=== PATIENT | female | born 1995 | race African-American/Black ===

== ENCOUNTER 2019-02-26 20:09 | Observation (INO) ==
[2019-02-26 21:45] LABS: Basophils % 0.2 % (0.0-0.8); Eosinophils % 0.1 % (0.00-10.9); Hematocrit 34.8 VOL% (35.7-47.0); Hemoglobin 10.9 GM/DL (12.0-16.0); Immature Granulocytes % 0.5 %; Immature Granulocytes Absolute 0.06 #; Lymphocytes # 0.9 10*3/uL (1.4-4.0); Lymphocytes % 7.2 % (21.3-54.2); Mean Corpuscular HGB Conc 31.3 GM/DL (32-36); Mean Corpuscular Volume 86.1 FL (87-102); Mean Platelet Volume 9.2 FL (9.6-12.0); Monocytes % 4.5 % (1.7-12.7); Neutrophils % 87.5 % (38.7-73.9); Platelet Count 261 T/CUMM (130-400); Red Blood Count 4.04 MC/CUMM (3.8-5.5); Red Cell Distribution Width 12.9 % (9.3-17.3); White Blood Count 12.6 T/CUMM (4-12)
[2019-02-26] MEDS ORDERED: MAGNESIUM HYDROXIDE SUSP 30 ML UDCUP PO PRN (21:55)
[2019-02-26] MEDS ORDERED: BISACODYL 10 MG SUPP RECTAL PRN (21:55)
[2019-02-26] MEDS ORDERED: ACETAMINOPHEN 325 MG TABLET PO PRN (21:55)
[2019-02-26] MEDS ORDERED: ONDANSETRON 4 MG/2 ML VIAL IV PRN ×2 (21:55→23:56)
[2019-02-26] MEDS: LACTATED RINGERS 1,000 ML IV SCH (23:14)
[2019-02-26] MEDS ORDERED: miSOPROStol 200 MCG TABLET VAG ONE (23:55)
[2019-02-26] MEDS ORDERED: MEPERIDINE 50 MG/1 ML VIAL IV PRN (23:55)
[2019-02-27] MEDS ORDERED: MEPERIDINE 25 MG/1 ML VIAL ONE (00:06)
[2019-02-27] MEDS ORDERED: MEPERIDINE 50 MG/1 ML VIAL IV PRN ×3 (00:32→02:18)
[2019-02-27] MEDS: CIPROFLOXACIN INJ 400 MG in PREMIX 1 EACH IV SCH ×2 (00:38→13:45)
[2019-02-27] MEDS ORDERED: MEPERIDINE 25 MG/1 ML VIAL IV PRN ×3 (01:14→02:18)
[2019-02-27] MEDS: LACTATED RINGERS 1,000 ML IV SCH (08:37)
[2019-02-27] MEDS ORDERED: DOCUSATE SODIUM 100 MG CAPSULE PO SCH (09:00)
[2019-02-27] MEDS ORDERED: DIAZEPAM 5 MG TABLET PO ONE (10:05)
[2019-02-27] MEDS ORDERED: FAMOTIDINE 20 MG TABLET PO ONE (10:06)
[2019-02-27] MEDS ORDERED: FAMOTIDINE 20 MG/2 ML VIAL IV ONE (11:38)
[2019-02-27] MEDS ORDERED: PROPOFOL 200 MG/20 ML VIAL IV ONE (13:09)
[2019-02-27] MEDS ORDERED: SEVOFLURANE 1 UNIT/15 MINUTE INH ONE (13:09)
[2019-02-27] MEDS ORDERED: fentaNYL 100 MCG/2 ML VIAL ONE (13:10)
[2019-02-27] MEDS ORDERED: PHENYLEPHRINE 1 MG/10 ML SYRINGE IV ONE (13:10)
[2019-02-27] MEDS ORDERED: MIDAZOLAM 2 MG/2 ML VIAL ONE (13:10)
[2019-02-27] MEDS ORDERED: KETOROLAC 30 MG/1 ML VIAL ONE (13:10)
[2019-02-27] MEDS ORDERED: ONDANSETRON 4 MG/2 ML VIAL ONE (13:10)
[2019-02-27 17:33] VITALS: BP 94/58
== END 2019-02-27 17:45 | disposition home or self-care (01) ==
LOC: N.ED 20:09 → N.EDINP 20:09 → N.OB 22:23
PROVIDERS: ADMIT Obstetrics & Gynecology; ATTEND Obstetrics & Gynecology

== ENCOUNTER 2020-05-20 05:46 | Inpatient (IN) ==
[2020-05-20] MEDS ORDERED: ONDANSETRON 4 MG/2 ML VIAL IV PRN (05:54)
[2020-05-20] MEDS ORDERED: LACTATED RINGERS 1,000 ML IV ONE ×2 (05:54→08:05)
[2020-05-20] MEDS ORDERED: LACTATED RINGERS 1,000 ML IV SCH (06:00)
[2020-05-20] MEDS ORDERED: OXYTOCIN/LR 20 UNIT/1,000 ML BAG IV SCH (06:00)
[2020-05-20 06:24] LABS: Basophils % 0.1 % (0.0-0.8); Eosinophils % 0.1 % (0.00-10.9); Hematocrit 28.4 VOL% (35.7-47.0); Hemoglobin 8.3 GM/DL (12.0-16.0); Immature Granulocytes % 1.7 %; Immature Granulocytes Absolute 0.13 #; Lymphocytes # 1.6 10*3/uL (1.4-4.0); Lymphocytes % 20.2 % (21.3-54.2); Mean Corpuscular HGB Conc 29.2 GM/DL (32-36); Mean Platelet Volume 9.1 FL (9.6-12.0); Monocytes % 7.4 % (1.7-12.7); NRBC # 0.06 10*3/uL; Neutrophils % 70.5 % (38.7-73.9); Platelet Count 235 T/CUMM (130-400); Red Blood Count 3.69 MC/CUMM (3.8-5.5); Red Cell Distribution Width 18.6 % (9.3-17.3); White Blood Count 7.8 T/CUMM (4-12)
[2020-05-20 06:54] LABS: Albumin 2.8 G/DL (3.4-5.0); Bilirubin,Total 0.6 MG/DL (0.2-1.0); Calcium 8.8 MG/DL (8.5-10.1); Osmolality,Calculated 266.2 MOS/KG (273-304); Total Protein 7.7 G/DL (6.4-8.3)
[2020-05-20] MEDS ORDERED: PROMETHAZINE 25 MG/1 ML VIAL IM ONE (08:05)
[2020-05-20] MEDS ORDERED: CITRIC ACID/SODIUM CITRATE 30 ML UDCUP PO ONE (08:05)
[2020-05-20] MEDS ORDERED: diphenhydrAMINE 50 MG/1 ML VIAL IV PRN ×2 (08:05)
[2020-05-20] MEDS ORDERED: ePHEDrine 50 MG/ML VIAL IV PRN (08:05)
[2020-05-20] MEDS ORDERED: NALOXONE 0.4 MG/ML VIAL IV PRN (08:05)
[2020-05-20] MEDS ORDERED: ONDANSETRON 4 MG/2 ML VIAL IV ONE (08:05)
[2020-05-20] MEDS ORDERED: FAMOTIDINE 20 MG/2 ML VIAL IV ONE (08:05)
[2020-05-20] MEDS ORDERED: hydrOXYzine HCL 25 MG/1 ML VIAL IM PRN (08:05)
[2020-05-20] MEDS ORDERED: CITRIC ACID/SODIUM CITRATE 30 ML UDCUP ONE (08:13)
[2020-05-20] MEDS ORDERED: fentaNYL 2 MCG/ROPIV 0.2% EPID 100 ML EPIDURAL SCH (08:30)
[2020-05-20 10:38] LABS: Apearance,Urine CLEAR (Clear); Bilirubin,Urine Negative (Negative); Blood, Urine Moderate mg/dL (Negative); Glucose,Urine (UA) Negative (Negative); Ketones,Urine 20 mg/dL (Negative); Mucus,Urine Occasional /LPF (Occasional); Nitrite,Urine Negative (Negative); Protein,Urine Negative; RBC,Urine 63 /HPF (0-4); Squamous Epithelial Cell,Urine Occasional /HPF (0-10); Urine Color Yellow (Yellow); Urine Specific Gravity 1.012 (1.001-1.035); WBC,Urine <1 /HPF (0-6)
[2020-05-20] MEDS ORDERED: miSOPROStoL 200 MCG TABLET ONE (11:09)
[2020-05-20] MEDS ORDERED: METHYLERGONOVINE 0.2 MG/1 ML AMP ONE (11:10)
[2020-05-20 11:39] LABS: Cord Venous Blood HCO3 22.1 MMOL/L; Cord Venous Blood PCO2 37.4 MMHG; Cord Venous Blood PO2 31.8 MMHG
[2020-05-20] MEDS ORDERED: OXYTOCIN/LR 20 UNIT/1,000 ML BAG IV ONE (16:37)
[2020-05-20] MEDS ORDERED: LANOLIN 50% CREAM 0.3 OZ TUBE TOP PRN (16:37)
[2020-05-20] MEDS ORDERED: HYDROCORTISONE 2.5% RECTAL CREAM 30 GM TUBE TOP PRN (16:37)
[2020-05-20] MEDS ORDERED: DIPH/TET/ACEL PERT BOOSTER VACCINE 0.5 ML VIAL IM ONE (16:37)
[2020-05-20] MEDS ORDERED: MEASLES/MUMPS/RUBELLA VACCINE 0.5 ML VIAL SUBCUT ONE (16:37)
[2020-05-20] MEDS ORDERED: WITCH HAZEL PADS 100/JAR TOP PRN (16:37)
[2020-05-20] MEDS ORDERED: BENZOCAINE 20%/MENTHOL 0.5% SPRAY 56 GM CAN TOP PRN (16:37)
[2020-05-20] MEDS ORDERED: RHO(D) IMMUNE GLOBULIN 300 MCG SYRINGE IM ONE (16:37)
[2020-05-20] MEDS ORDERED: BISACODYL 10 MG SUPP RECTAL PRN (16:37)
[2020-05-20] MEDS ORDERED: ACETAMINOPHEN 325 MG TABLET PO PRN (16:37)
[2020-05-20] MEDS ORDERED: oxyCODONE/ACETAMINOPHEN 5-325 MG TABLET PO PRN ×2 (16:37)
[2020-05-20] MEDS ORDERED: IBUPROFEN 800 MG TABLET ONE (16:40)
[2020-05-20] MEDS: IBUPROFEN 800 MG TABLET PO PRN ×2 (16:47→23:14)
[2020-05-20] MEDS: DOCUSATE SODIUM 100 MG CAPSULE PO SCH (19:35)
[2020-05-21 06:49] LABS: Basophils % 0.1 % (0.0-0.8); Eosinophils % 0.2 % (0.00-10.9); Hematocrit 25.5 VOL% (35.7-47.0); Hemoglobin 7.4 GM/DL (12.0-16.0); Immature Granulocytes % 1.4 %; Immature Granulocytes Absolute 0.14 #; Lymphocytes % 20.5 % (21.3-54.2); Mean Corpuscular Volume 78.2 FL (87-102); Mean Platelet Volume 9.7 FL (9.6-12.0); Monocytes % 7.1 % (1.7-12.7); NRBC # 0.05 10*3/uL; Neutrophils % 70.7 % (38.7-73.9); Platelet Count 226 T/CUMM (130-400); Red Blood Count 3.26 MC/CUMM (3.8-5.5); Red Cell Distribution Width 18.6 % (9.3-17.3); White Blood Count 9.8 T/CUMM (4-12)
[2020-05-21] MEDS: DOCUSATE SODIUM 100 MG CAPSULE PO SCH (08:41)
[2020-05-21] MEDS: FERROUS SULFATE 325 MG TABLET PO SCH ×2 (08:41→15:12)
[2020-05-21] MEDS: IBUPROFEN 800 MG TABLET PO PRN (08:41)
[2020-05-21] MEDS ORDERED: FERROUS SULFATE 325 MG TABLET PO SCH (09:00)
[2020-05-21 12:07] VITALS: BP 139/88
== END 2020-05-21 16:30 | disposition home or self-care (01) | DRG 807 ==
LOC: N.LDOUT 05:46 → N.LD 05:48 → N.OB 13:38
PROVIDERS: ADMIT Obstetrics & Gynecology; ATTEND Obstetrics & Gynecology

== ENCOUNTER 2022-06-21 06:35 | Inpatient (IN) ==
[2022-06-21] MEDS ORDERED: TRANEXAMIC ACID 1,000 MG in SODIUM CHLORIDE 0.9% 100 ML IV PRN (07:03)
[2022-06-21] MEDS ORDERED: miSOPROStoL 200 MCG TABLET RECTAL PRN (07:03)
[2022-06-21] MEDS ORDERED: CARBOPROST TROMETHAMINE 250 MCG/ML AMP IM PRN (07:03)
[2022-06-21] MEDS ORDERED: OXYTOCIN/LR 20 UNIT/1,000 ML BAG IV ONE ×2 (07:03→08:37)
[2022-06-21] MEDS ORDERED: LACTATED RINGERS 500 ML IV PRN (07:03)
[2022-06-21] MEDS ORDERED: ONDANSETRON 4 MG/2 ML VIAL IV PRN ×2 (07:03→08:37)
[2022-06-21] MEDS ORDERED: MEPERIDINE 50 MG/1 ML VIAL IV PRN (07:03)
[2022-06-21] MEDS ORDERED: METHYLERGONOVINE 0.2 MG/1 ML AMP IM PRN (07:03)
[2022-06-21] MEDS ORDERED: BUTORPHANOL 2 MG/ML VIAL IV PRN (07:03)
[2022-06-21] MEDS ORDERED: CARBOPROST TROMETHAMINE 250 MCG/ML AMP IM ONE (07:06)
[2022-06-21] MEDS ORDERED: METHYLERGONOVINE 0.2 MG/1 ML AMP ONE (07:06)
[2022-06-21] MEDS ORDERED: MEPERIDINE 50 MG/1 ML VIAL ONE (07:19)
[2022-06-21] MEDS ORDERED: ONDANSETRON 4 MG/2 ML VIAL ONE (07:27)
[2022-06-21] MEDS ORDERED: LACTATED RINGERS 1,000 ML IV SCH (07:30)
[2022-06-21] MEDS ORDERED: OXYTOCIN/LR 20 UNIT/1,000 ML BAG IV SCH (07:30)
[2022-06-21 07:47] LABS: Cord Venous Blood PO2 31.1
[2022-06-21] MEDS ORDERED: LIDOCAINE 1% 20 ML VIAL IM ONE (07:57)
[2022-06-21 08:25] LABS: Basophils % 0.2 % (0.0-0.8); Eosinophils % 0.1 % (0.00-10.9); Hematocrit 33.6 VOL% (35.7-47.0); Immature Granulocytes % 1.2 %; Immature Granulocytes Absolute 0.14 #; Lymphocytes # 0.9 10*3/uL (1.4-4.0); Lymphocytes % 7.5 % (21.3-54.2); Mean Corpuscular HGB Conc 28.6 GM/DL (32-36); Monocytes # 0.4 10*3/uL (0.11-0.8); Monocytes % 3.3 % (1.7-12.7); NRBC # 0.03 10*3/uL; Neutrophils % 87.7 % (38.7-73.9); Platelet Count 258 T/CUMM (130-400); Red Blood Count 4.15 MC/CUMM (3.8-5.5); Red Cell Distribution Width 18.1 % (9.3-17.3); White Blood Count 11.3 T/CUMM (4-12)
[2022-06-21 08:26] LABS: Hemoglobin 9.6 GM/DL (12.0-16.0)
[2022-06-21] MEDS ORDERED: ACETAMINOPHEN 325 MG TABLET PO PRN (08:37)
[2022-06-21] MEDS ORDERED: MEASLES/MUMPS/RUBELLA VACCINE 0.5 ML VIAL SUBCUT ONE (08:37)
[2022-06-21] MEDS ORDERED: LANOLIN 50% CREAM 0.3 OZ TUBE TOP PRN (08:37)
[2022-06-21] MEDS ORDERED: BENZOCAINE 20%/MENTHOL 0.5% SPRAY 56 GM CAN TOP PRN (08:37)
[2022-06-21] MEDS ORDERED: BISACODYL 10 MG SUPP RECTAL PRN (08:37)
[2022-06-21] MEDS ORDERED: RHO(D) IMMUNE GLOBULIN 300 MCG SYRINGE IM ONE (08:37)
[2022-06-21] MEDS ORDERED: oxyCODONE/ACETAMINOPHEN 5-325 MG TABLET PO PRN (08:37)
[2022-06-21] MEDS ORDERED: HYDROCORTISONE 2.5% RECTAL CREAM 30 GM TUBE TOP PRN (08:37)
[2022-06-21] MEDS ORDERED: DIPH/TET/ACEL PERT BOOSTER VACCINE 0.5 ML VIAL IM ONE (08:37)
[2022-06-21] MEDS ORDERED: WITCH HAZEL PADS 100/JAR TOP PRN (08:37)
[2022-06-21 08:52] LABS: Albumin 2.7 G/DL (3.4-5.0); Bilirubin,Total 0.5 MG/DL (0.20-1.00); Osmolality,Calculated 266.2 MOS/KG (273-304); Potassium 3.6 MMOL/L (3.5-5.1); Total Protein 7.5 G/DL (6.4-8.2)
[2022-06-21 09:37] LABS: Hypochromia 1+; Microcytosis 1+; Ovalocytes Few; Tear Drop Cells Slight
[2022-06-21 09:38] LABS: Platelet Estimate Normal
[2022-06-21] MEDS: IBUPROFEN 800 MG TABLET PO PRN ×2 (10:30→18:18)
[2022-06-21] MEDS: DOCUSATE SODIUM 100 MG CAPSULE PO SCH ×2 (10:31→21:21)
[2022-06-21] MEDS: oxyCODONE/ACETAMINOPHEN 5-325 MG TABLET PO PRN (18:18)
[2022-06-22] MEDS: IBUPROFEN 800 MG TABLET PO PRN ×2 (01:58→09:08)
[2022-06-22] MEDS: oxyCODONE/ACETAMINOPHEN 5-325 MG TABLET PO PRN (01:58)
[2022-06-22 05:57] LABS: Basophils % 0.2 % (0.0-0.8); Eosinophils % 0.1 % (0.00-10.9); Hematocrit 28.7 VOL% (35.7-47.0); Hemoglobin 8.5 GM/DL (12.0-16.0); Immature Granulocytes % 2.4 %; Immature Granulocytes Absolute 0.23 #; Lymphocytes # 2.2 10*3/uL (1.4-4.0); Lymphocytes % 22.4 % (21.3-54.2); Mean Corpuscular HGB Conc 29.6 GM/DL (32-36); Mean Corpuscular Volume 78.4 FL (87-102); Mean Platelet Volume 9.1 FL (9.6-12.0); Monocytes # 0.6 10*3/uL (0.11-0.8); Monocytes % 6.5 % (1.7-12.7); NRBC # 0.04 10*3/uL; Neutrophils % 68.4 % (38.7-73.9); Platelet Count 253 T/CUMM (130-400); Red Blood Count 3.66 MC/CUMM (3.8-5.5); Red Cell Distribution Width 17.6 % (9.3-17.3); White Blood Count 9.7 T/CUMM (4-12)
[2022-06-22] MEDS: DOCUSATE SODIUM 100 MG CAPSULE PO SCH ×2 (09:08→21:22)
[2022-06-23] MEDS: oxyCODONE/ACETAMINOPHEN 5-325 MG TABLET PO PRN (04:00)
[2022-06-23 08:20] VITALS: BP 118/73
[2022-06-23] MEDS: DOCUSATE SODIUM 100 MG CAPSULE PO SCH (08:46)
[2022-06-23] MEDS ORDERED: FERROUS SULFATE 325 MG TABLET PO SCH (09:00)
[2022-06-23] MEDS ORDERED: INFLUENZA VIRUS VACCINE 0.5 ML SYRINGE IM ONE (09:06)
== END 2022-06-23 12:00 | disposition home or self-care (01) | DRG 807 ==
LOC: N.LDOUT 06:35 → N.LD 06:36 → N.OB 10:11
PROVIDERS: ADMIT Obstetrics & Gynecology; ATTEND Obstetrics & Gynecology